=== PATIENT | female | born 1985 | race Hispanic/Latino ===

== ENCOUNTER 2022-12-27 06:58 | Emergency (ER) | payer MEDICAID ==
[~2022-12-27] VITALS: Ht 160 cm; Wt 118.0 kg
[2022-12-27] MEDS ORDERED: PREDNISONE50 MG PO (07:26)
[2022-12-27] MEDS ORDERED: FLEXERIL5 M1 PO (07:26)
[2022-12-27] MEDS ORDERED: TRAMADOL HYDROC50 M1 PO (07:26)
[2022-12-27 07:53] VITALS: BP 102/68
== END 2022-12-27 08:00 | disposition home or self-care (01) ==
LOC: ED 06:58
DX: M25.512 Pain in left shoulder (principal); M25.511 Pain in right shoulder; I10 Essential (primary) hypertension; Z86.73 Personal history of transient ischemic attack (TIA), and cerebral infarction without residual deficits; Z88.5 Allergy status to narcotic agent